=== PATIENT | male | born 1970 | race Caucasian/White ===

== ENCOUNTER 2023-08-18 10:32 | Emergency (ER) | payer MEDICAID ==
[~2023-08-18] VITALS: Ht 175.3 cm; Wt 106.1 kg
[2023-08-18 10:34] VITALS: BP 181/93; PULSE 105; O2SAT 97
[2023-08-18] MEDS ORDERED: CIPR10DR LEFT EAR (13:59)
[2023-08-18] MEDS ORDERED: AMOX-580 PO (13:59)
[2023-08-18] MEDS: CefTRIAXone 1000mg IM Kit (w/lidocaine diluent) IM ONE (14:00)
[2023-08-18 14:04] VITALS: RESP 18; TEMP 98.7
== END 2023-08-18 14:07 | disposition home or self-care (01) ==
LOC: ER 10:34
DX: K04.7 Periapical abscess without sinus (principal); H66.92 Otitis media, unspecified, left ear
CPT/HCPCS: 96372; 99283; J0696